=== PATIENT | male | born 1965 | race Caucasian/White ===

== ENCOUNTER 2023-04-27 09:07 | Day surgery (SDC) | payer BC ==
[2023-04-20 15:59] LABS: BILIRUBIN,URINE NEGATIVE (Neg); CLARITY,URINE CLEAR (Clear); COLOR,URINE YELLOW (Yellow); GLUCOSE, URINE NEGATIVE (Neg); KETONES,URINE NEGATIVE (Neg); LEUKOCYTE ESTERASE ,URINE NEGATIVE (Neg); NITRITES, URINE NEGATIVE (Neg); OCCULT BLOOD,URINE NEGATIVE (Neg); PROTEIN,URINE NEGATIVE (Neg); UROBILINOGEN,URINE 0.2 E.U/dL (0.2-1.0)
[2023-04-20 16:13] LABS: BASOPHILS # (AUTO) 0.1 X10'3 (0-0.2); BASOPHILS % (AUTO) 0.8 % (0-1); EOSINOPHILS # (AUTO) 0.3 X10'3 (0-0.9); EOSINOPHILS % (AUTO) 3.6 % (0-6); LYMPHOCYTES # (AUTO) 2.9 X10'3 (1.1-4.8); LYMPHOCYTES % (AUTO) 41.2 % (21-51); MEAN CORPUSCULAR HEMOGLOBIN 30.4 PG (27.0-31.0); MEAN CORPUSCULAR HGB CONC 33.7 g/dL (33.0-36.5); MEAN CORPUSCULAR VOLUME 90.2 FL (78-98); MEAN PLATELET VOLUME 7.9 FL (7.4-10.4); MONOCYTES # (AUTO) 0.7 X10'3 (0-0.9); MONOCYTES % (AUTO) 9.6 % (2-12); NEUTROPHILS # (AUTO) 3.2 X10'3 (1.8-7.7); NEUTROPHILS % (AUTO) 44.8 % (42-75); PRE OP HEMATOCRIT 45.1 % (42.0-52.0); PRE OP HEMOGLOBIN 15.2 g/dL (14.0-17.9); PRE OP PLATELET COUNT 184 X10'3 (140-440); PRE OP WHITE BLOOD COUNT 7.1 10'3 (4.8-10.8); RED CELL DISTRIBUTION WIDTH 14.2 % (11.5-14.5)
[2023-04-20 16:14] LABS: UA COLLECTION TYPE CLN CATCH MIDSTREAM
[2023-04-20 16:35] LABS: ALBUMIN 3.9 G/DL (3.4-5.0); ALBUMIN/GLOBULIN RATIO 1.1 (1.1-1.5); ALKALINE PHOSPHATASE 54 IU/L (46-116); BLOOD UREA NITROGEN 13 MG/DL (7-18); BUN/CREATININE RATIO 15.1 (10.0-20.0); CALCIUM 8.8 MG/DL (8.5-10.1); CHLORIDE 105 MMOL/L (99-107); CREATININE 0.86 MG/DL (0.60-1.10); PRE OP ALT 30 U/L (30-65); PRE OP ANION GAP 11 (8-16); PRE OP AST 14 U/L (10-37); PRE OP BILIRUB, TOTAL 0.4 MG/DL (0.0-1.0); PRE OP GLUCOSE 83 MG/DL (70-104); PRE OP POTASSIUM 3.7 MMOL/L (3.4-5.1); PRE OP SODIUM 139 MMOL/L (135-145); TOTAL PROTEIN 7.4 G/DL (6.4-8.2); eGFR > 90 ML/MIN
[~2023-04-27] VITALS: Ht 198.1 cm; Wt 115.3 kg
[2023-04-27] VITALS (10 sets, daily range): BP systolic 125–140; BP diastolic 70–90; PULSE 62–75; RESP 15–18; TEMP 97.7; O2SAT 94–99
[2023-04-27] MEDS: cefazolin 2gm/D5W 100mL 100 ML IV ONE (05:30)
[~2023-04-27 09:07] MED LIST: AMLO5TAB16 PO; LISI20TA28 PO; enalaprilat dihydrate 2.5mg/2ml vial IV PRN; labetalol 20mg/4ml (5mg/ml) syringe IV PRN; meperidine/PF 25mg/ml syringe IV PRN; morphine 2 MG/ML inj. syringe IV PRN; morphine 4 MG/ML inj SYRINge IV PRN; ondansetron/PF 4mg/2ml inj IV PRN; proCHLORperazine 10 MG/2 ml inj IV PRN; ringers solution, lacted 1,000 ML IV SCH
[2023-04-27] MEDS: famotidine 20mg tablet PO ONE (09:36)
[2023-04-27] MEDS: ringers solution, lacted 1,000 ML IV SCH (09:37)
[2023-04-27] MEDS ORDERED: BUPIVAcaine 2.5mg/ml inj 50ml vial (contains preservative) ONE (12:32)
[2023-04-27] MEDS ORDERED: rocuronium 10mg/ml inj IV ONE ×3 (12:50→13:43)
[2023-04-27] MEDS ORDERED: ondansetron/PF 4mg/2ml inj ONE (12:50)
[2023-04-27] MEDS ORDERED: ketorolac trometh. 30mg/ml inj. ONE (12:50)
[2023-04-27] MEDS ORDERED: sevoflurane 250ml liquid IH ONE (12:50)
[2023-04-27] MEDS ORDERED: neostigmine methylsulfate 1 MG/ML 10ml vial ONE (12:50)
[2023-04-27] MEDS ORDERED: glycopyrrolate 0.2mg/ml inj ONE (12:50)
[2023-04-27] MEDS ORDERED: fentaNYL/PF 50MCG/1 ML 2ML syringe ONE ×2 (12:59→14:08)
[2023-04-27] MEDS ORDERED: midazolam 1 mg/ML 2ml injection ONE (12:59)
[2023-04-27] MEDS ORDERED: dexamethasone sod phosphate 4mg/ml inj. ONE (13:07)
[2023-04-27] MEDS ORDERED: propofol inj 20 ML IV ONE (13:07)
[2023-04-27] MEDS ORDERED: LIDOcaine 2% (20mg/ml) 5ml vial ONE (13:07)
[2023-04-27] MEDS: BUPIVAcaine 2.5mg/ml inj 50ml vial (contains preservative) SQ ONE (13:32)
[2023-04-27] MEDS ORDERED: meperidine/PF 50mg/ml syringe ONE (15:12)
[2023-04-27] MEDS: meperidine/PF 25mg/ml syringe IV PRN (16:52)
[2023-04-27] MEDS: HYDROcodone/acetaminophen 10/325mg tab PO ONE (17:24)
== END 2023-04-27 17:55 | disposition home or self-care (01) ==
LOC: PAS 09:07
PROVIDERS: ATTEND Surgery
DX: K40.20 Bilateral inguinal hernia, without obstruction or gangrene, not specified as recurrent (principal); K42.9 Umbilical hernia without obstruction or gangrene; I10 Essential (primary) hypertension; F17.210 Nicotine dependence, cigarettes, uncomplicated; Z79.899 Other long term (current) drug therapy; Z98.890 Other specified postprocedural states; Z81.8 Family history of other mental and behavioral disorders; Z82.3 Family history of stroke
CPT/HCPCS: 36415; 49591; 49650; 80053; 81003; 82948; 85025; 93005; C1776; C1781; J0690; J1100; J1885; J2175; J2250; J2405; J2704; J2710; J3010; J3490; J7030; J7120; Z7506; Z7508; Z7512; A4215; A4618; C1758